=== PATIENT | male | born 1995 | race Caucasian/White ===

== ENCOUNTER 2017-05-11 12:26 | Inpatient (IN) | payer SELFPAY ==
[~2017-05-11] VITALS: Ht 167.6 cm; Wt 66.6 kg
[2017-05-11] MEDS ORDERED: KETOROLAC 30 MG INJ IV STA (14:05)
[2017-05-11] MEDS ORDERED: DEXAMETHASONE 10 MG/ML 1 ML INJ IV ONE (14:30)
[2017-05-11] MEDS ORDERED: SOD CHLORIDE 0.9% 100 ML ONE (14:33)
[2017-05-11] MEDS ORDERED: IOHEXOL 300MG/ML 150 ML BTL ONE (14:33)
[2017-05-11 14:42] LABS: ADD SCAN DIFF NO
[2017-05-11 14:45] LABS: ABNORMAL IP MESSAGE 1; HEMATOCRIT 43.9 % (42.0-52.0); HEMOGLOBIN 15.4 g/dl (14.0-18.0); MEAN CORPUSCULAR HEMOGLOBIN 28.9 pg (29.0-33.0); MEAN CORPUSCULAR HGB CONC 35.1 g/dl (32.0-37.0); MEAN CORPUSCULAR VOLUME 82.5 fl (72.0-104.0); PLATELET COUNT 244 10^3/UL (140-415); RED BLOOD COUNT 5.32 10^6/ul (4.70-6.10); RED CELL DISTRIBUTION WIDTH 12.5 % (11.5-14.5); WHITE BLOOD COUNT 29.2 10^3/ul (4.8-10.8)
[2017-05-11] MEDS ORDERED: morphine 4 MG/ML VIAL IV STA (15:04)
[2017-05-11] MEDS ORDERED: ONDANSETRON 4 MG INJ IV STA (15:04)
[2017-05-11 15:06] LABS: ALBUMIN 5.3 g/dl (3.3-4.9); ALBUMIN/GLOBULIN RATIO 1.76; BILIRUBIN,INDIRECT 0.8 mg/dl (0-1.1); BILIRUBIN,TOTAL 0.8 mg/dl (0.2-1.3); CALCIUM 9.9 mg/dl (8.4-10.2); CREATININE 1.02 mg/dl (0.61-1.24); POTASSIUM 4.3 mmol/L (3.5-5.1); TOTAL PROTEIN 8.3 g/dl (6.1-8.1)
--- NOTE | 2017-05-11 15:09 | RADRPT ---
PROCEDURE: CT Neck with contrast CLINICAL INDICATION: Peritonsillar abscess. TECHNIQUE: CT of the neck was performed following the intravenous administration of 80 cc of Omnip aque-300 IV Contrast. Axial images were obtained through the neck with multiplanar reformatted image s generated from the axial acquired data. The administered radiation dose was CTDI vol = 8.82 mGy, DLP = 259.13 mGy-cm. One or more of the following dose reduction techniques were used: Automated exp osure control, Adjustment of the mA and/or kV according to patient size, or Use of iterative reconst ruction technique. COMPARISON: There are no similar studies submitted for comparison. FINDINGS: SKULL: The visualized portions of the brain are grossly unremarkable.The visualized orbits are unrem arkable.The visualized paranasal sinuses are well aerated.The bilateral mastoid air cells are within normal limits. PAROTID GLANDS: Unremarkable. SUBMANDIBULAR GLANDS: Unremarkable. THYROID GLAND: Unremarkable. VASCULATURE: The bilateral vascular structures are patent. LYMPH NODES: There are mildly large hyperenhancing bilateral level II a lymph nodes greater on the r ight with the right measuring 2.1 x 1.4 cm (image 36 series 3). These are likely reactive. Otherw ise there are no bilateral enlarged lymph nodes. No necrotic lymph nodes are identified. AERODIGESTIVE TRACT: There is streak artifact from dental hardware limiting evaluation of the oral c avity.There is a 2 cm peripherally enhancing fluid attention within the right peritonsillar region m ost compatible with peritonsillar abscess. There is slight enhancement of the bilateral palatine to nsils compatible with acute tonsillitis. There is also edema of the uvula. This causes mild to mod erate nasopharyngeal airway effacement. Edema also extends inferiorly into the right posterior orop haryngeal submucosa wall. There is also mild edema extending inferiorly along the lateral aspect of the right epiglottis. Otherwise no abnormal enhancing aerodigestive tract lesion is identified. THORAX: The lung apices are unremarkable. OSSEOUS STRUCTURES: No destructive lytic or blastic osseous lesion is identified.There is reversal o f the cervical lordosis suggesting muscle spasm. IMPRESSION: 1. There is striated enhancement and enlargement of the bilateral palatine tonsils compatible with acute tonsillitis. There is a 2 cm right peritonsillar abscess. This causes mild to moderate nasoph aryngeal airway effacement. There is mild adjacent right parapharyngeal/submucosal submandibular [place] bcutaneous fluid likely reactive. There is mild fluid extending inferiorly to the lateral aspect of the right epiglottis and right posterior oropharyngeal/hypopharyngeal submucosal wall. There is asso ciated uvula edema. Direct inspection is recommended as clinically warranted. 2. Mildly enlarged right greater than left bilateral level IIA lymph nodes which are likely reactiv e. Further findings as detailed above. These findings were discussed with Dr. Izabela Shepherd at 03:06 p.m. on May 11, 2017. RPTAT: PP .Martin Siu MD, MD Date Time Electronically viewed and signed by .Martin Siu MD, on 05/11/2017 15:08 .F/
[2017-05-11] MEDS ORDERED: SOD CHLORIDE 0.9% 1,000 ML IV ONE (15:30)
[2017-05-11] MEDS ORDERED: ACETAMINOPHEN 1000MG/100ML IV 100 ML IVPB ONE (15:30)
[2017-05-11] MEDS ORDERED: PIPER-TAZO 3.375 GM IV (PMX) 100 ML IVPB ONE (15:30)
[2017-05-11] MEDS ORDERED: LIDOCAINE 1% (MDV) 20 ML INJ SC ONE (16:00)
[2017-05-11 16:39] LABS: LYMPHOCYTES # 1.2 10^3/ul (0.8-2.9); MONOCYTE # 2.6 10^3/ul (0.3-0.9); NEUTROPHIL # 24.8 10^3/ul (1.6-7.5)
--- NOTE | 2017-05-11 17:35 | ERA ---
ER Documentation Chief Complaint Date/Time DATE: 05/11/17 Chief Complaint Sore throat HPI The patient is 21-year-old male, presenting to the ER because of sore throat, unable to open his mouth wide, unable to speak well when he woke up today. He had right peritonsillar abscess incised and drained on April 26, 2017 at [facility] and was discharged with antibiotic for 5 days. He has been doing well until today. He denies fever, chills, neck pain, chest pain, dyspnea , abdominal pain, vomiting ROS All systems reviewed and are negative except as per history of present illness. Medications Home Meds No Active Prescriptions or Reported Meds Allergies Allergies: Coded Allergies: No Known Allergy (Unverified , 05/11/17) PMhx/Soc Medical and Surgical Hx: pt denies Medical Hx, pt denies Surgical Hx History of Surgery: No Anesthesia Reaction: No Hx Neurological Disorder: No Hx Respiratory Disorders: No Hx Cardiac Disorders: No Hx Psychiatric Problems: No Hx Miscellaneous Medical Probl: No Hx Alcohol Use: No Hx Substance Use: No Hx Tobacco Use: No Smoking Status: Never smoker Physical Exam Vitals Vital Signs Date Time Temp Pulse Resp B/P Pulse Ox O2 Delivery O2 Flow Rate FiO2 05/11/17 18:48 97.9 58 18 122/78 99 Room Air 05/11/17 17:23 98.2 96 20 137/80 97 Room Air 05/11/17 14:53 101.6 118 22 130/76 96 Room Air 05/11/17 12:49 100.8 99 20 136/99 99 Physical Exam Const: No acute distress. Head: Atraumatic. Eyes: Normal Conjunctiva. ENT: Normal External Ears, Nose and Mouth. Large right peritonsillar abscess Neck: Full range of motion. No meningismus. Resp: Clear to auscultation bilaterally. Cardio: Regular rate and rhythm. Abd: Soft, non distended, normal bowel sounds, non tender. Skin: No petechiae or rashes. Back: No midline or flank tenderness. Ext: No cyanosis, or edema. Neur: Awake and alert. No focal deficit Psych: Normal Mood and Affect. Result Diagram: 05/11/17 1422 05/11/17 1422 Results 24 hrs Laboratory Tests Test 05/11/17 14:22 White Blood Count 29.210^3/ul Red Blood Count 5.3210^6/ul Hemoglobin 15.4g/dl Hematocrit 43.9% Mean Corpuscular Volume 82.5fl Mean Corpuscular Hemoglobin 28.9pg Mean Corpuscular Hemoglobin Concent 35.1g/dl Red Cell Distribution Width 12.5% Platelet Count 90008^3/UL Mean Platelet Volume 11.0fl Neutrophils % 85.0% Band Neutrophils % 2.0% Lymphocytes % 4.0% Monocytes % 9.0% Neutrophils # 24.810^3/ul Lymphocytes # 1.210^3/ul Monocytes # 2.610^3/ul Differential Comment Sodium Level 137mmol/L Potassium Level 4.3mmol/L Chloride Level 97mmol/L Carbon Dioxide Level 28mmol/L Anion Gap 16 Blood Urea Nitrogen 9mg/dl Creatinine 1.02mg/dl Glucose Level 122mg/dl Calcium Level 9.9mg/dl Total Bilirubin 0.8mg/dl Direct Bilirubin 0.00mg/dl Indirect Bilirubin 0.8mg/dl Aspartate Amino Transf (AST/SGOT) 26IU/L Alanine Aminotransferase (ALT/SGPT) 38IU/L Alkaline Phosphatase 80IU/L Total Protein 8.3g/dl Albumin 5.3g/dl Globulin 3.00g/dl Albumin/Globulin Ratio 1.76 Current Medications Medications (Trade) Dose Ordered Sig/Nj Route PRN Reason Start Time Stop Time Status Last Admin Dose Admin Ketorolac Tromethamine (Toradol) 30 mg ONCE STAT IV 05/11/17 14:05 05/11/17 14:09 DC 05/11/17 14:27 Dexamethasone (Decadron) 10 mg ONCE ONCE IV 05/11/17 14:30 05/11/17 14:31 DC 05/11/17 14:27 IV Flush 10 ml 10 ml STK-MED ONCE .ROUTE 05/11/17 14:33 05/11/17 14:34 DC Sodium Chloride (NS) 100 ml @ ud STK-MED ONCE .ROUTE 05/11/17 14:33 05/11/17 14:34 DC Iohexol 150 ml 150 ml STK-MED ONCE .ROUTE 05/11/17 14:33 05/11/17 14:34 DC Sodium Chloride 1,000 ml @ 1,000 mls/hr Q1H ONCE IV 05/11/17 15:30 05/11/17 16:29 DC 05/11/17 15:09 Acetaminophen (Ofirmev 1000mg/ 100ml Iv) 100 ml @ 400 mls/hr ONCE ONCE IVPB 05/11/17 15:30 05/11/17 15:44 DC 05/11/17 15:17 Morphine Sulfate (morphine) 4 mg ONCE STAT IV 05/11/17 15:04 05/11/17 15:06 DC Ondansetron HCl 4 mg 4 mg ONCE STAT IV 05/11/17 15:04 05/11/17 15:06 DC Piperacillin Sod/ Tazobactam Sod (Zosyn 3.375gm/ 100 ml (Pmx)) 100 ml @ 200 mls/hr ONCE ONCE IVPB 05/11/17 15:30 05/11/17 15:59 DC 05/11/17 15:28 Lidocaine (Xylocaine 1% (Mdv) 20 ml) 20 ml ONCE ONCE SC 05/11/17 16:00 05/11/17 16:01 DC IV Flush (NS 3 ml) 3 ml PER PROTOCOL IV 05/11/17 18:30 Lorazepam (Ativan) 0.5 mg Q6H PRN IV ANXIETY 05/11/17 18:30 Ondansetron HCl (Zofran Inj) 4 mg Q6H PRN IV NAUSEA AND/OR VOMITING 05/11/17 18:30 05/11/17 19:49 Acetaminophen (Tylenol Supp) 650 mg Q6H PRN [place] PAIN LEVEL 1-3 OR FEVER 05/11/17 18:30 Morphine Sulfate (morphine) 4 mg Q4H PRN IV pain 05/11/17 18:30 Hydromorphone HCl (Dilaudid) 1 mg Q4H PRN IV pain 05/11/17 18:30 05/11/17 19:48 Albuterol/ Ipratropium 3 ml 3 ml Q2H RESP THERAPY PRN HHN SHORTNESS OF BREATH 05/11/17 18:30 Piperacillin Sod/ Tazobactam Sod (Zosyn 3.375gm/ 100 ml (Pmx)) 100 ml @ 200 mls/hr Q6H IVPB 05/11/17 18:30 05/11/17 18:55 DC Vancomycin HCl VANCOMYCIN PER PHARMACY PER PROTOCOL XX 05/11/17 18:30 Piperacillin Sod/ Tazobactam Sod 100 ml @ 200 mls/hr Q6 IVPB 05/11/17 20:00 Vancomycin HCl (Vancocin) 250 ml @ 125 mls/hr Q8H IVPB 05/11/17 20:00 05/11/17 19:13 Procedures/MDM [place] [id number] [place] [id number] Radiology Main Line: [phone] DIAGNOSTIC IMAGING REPORT Patient: NATI GIBSON : 1995 Age: 21 Sex: M MR #: [id number] DOS: 05/11/17 1405 Ordering MD: SANGEETA ZALDIVAR NP Location: E/R Room/Bed: PROCEDURE: CT Neck with contrast CLINICAL INDICATION: Peritonsillar abscess. TECHNIQUE: CT of the neck was performed following the intravenous administration of 80 cc of Omnipaque-300 IV Contrast. Axial images were obtained through the neck with multiplanar reformatted images generated from the axial acquired data. The administered radiation dose was CTDI vol = 8.82 mGy, DLP = 259.13 mGy-cm. One or more of the following dose reduction techniques were used: Automated exposure control, Adjustment of the mA and/or kV according to patient size, or Use of iterative reconstruction technique. COMPARISON: There are no similar studies submitted for comparison. FINDINGS: SKULL: The visualized portions of the brain are grossly unremarkable.The visualized orbits are unremarkable.The visualized paranasal sinuses are well aerated.The bilateral mastoid air cells are within normal limits. PAROTID GLANDS: Unremarkable. SUBMANDIBULAR GLANDS: Unremarkable. THYROID GLAND: Unremarkable. VASCULATURE: The bilateral vascular structures are patent. LYMPH NODES: There are mildly large hyperenhancing bilateral level II a lymph nodes greater on the right with the right measuring 2.1 x 1.4 cm (image 36 series 3). These are likely reactive. Otherwise there are no bilateral enlarged lymph nodes. No necrotic lymph nodes are identified. AERODIGESTIVE TRACT: There is streak artifact from dental hardware limiting evaluation of the oral cavity.There is a 2 cm peripherally enhancing fluid attention within the right peritonsillar region most compatible with peritonsillar abscess. There is slight enhancement of the bilateral palatine tonsils compatible with acute tonsillitis. There is also edema of the uvula. This causes mild to moderate nasopharyngeal airway effacement. Edema also extends inferiorly into the right posterior oropharyngeal submucosa wall. There is also mild edema extending inferiorly along the lateral aspect of the right epiglottis. Otherwise no abnormal enhancing aerodigestive tract lesion is identified. THORAX: The lung apices are unremarkable. OSSEOUS STRUCTURES: No destructive lytic or blastic osseous lesion is identified.There is reversal of the cervical lordosis suggesting muscle spasm. IMPRESSION: 1. There is striated enhancement and enlargement of the bilateral palatine tonsils compatible with acute tonsillitis. There is a 2 cm right peritonsillar abscess. This causes mild to moderate nasopharyngeal airway effacement. There is mild adjacent right parapharyngeal/submucosal submandibular subcutaneous fluid likely reactive. There is mild fluid extending inferiorly to the lateral aspect of the right epiglottis and right posterior oropharyngeal/hypopharyngeal submucosal wall. There is associated uvula edema. Direct inspection is recommended as clinically warranted. 2. Mildly enlarged right greater than left bilateral level IIA lymph nodes which are likely reactive. Further findings as detailed above. These findings were discussed with Dr. Sangeeta Zaldivar at 03:06 p.m. on May 11, 2017. RPTAT: PP .Martin Siu MD, MD Date Time Electronically viewed and signed by .Martin Siu MD, on 05/11/2017 15:08 .F/ CC: SANGEETA ZALDIVAR [employer]OOK [employer]ENT Consultation: I discussed the patient with the ENT Dr. Gardiner, who came to the ER and attempted to I&D the tonsillar abscess without success. He recommended admitting the patient MEDICAL MAKING DECISION: The patient is a 21-year-old male, presenting with acute right peritonsillar abscess. He was treated with Zosyn IV, pain medication and IV fluid The differential diagnoses considered include but are not limited to peritonsillar abscess, cellulitis, pharyngitis, pharyngeal cellulitis Departure Diagnosis: Primary Impression: Peritonsillar abscess Condition: Stable Comments I discussed the findings with the patient. I discussed the patient with the on- call hospitalist Dr. Camacho who was made aware of the lab, the treatment, the patient condition and my discussion with the ENT specialist. The patient is admitted to [facility] due to possibility of airway compromise The patient's blood pressure was elevated (>120/80) but appears stable without evidence of hypertension emergency or urgency. The patient was counseled about the risks of hypertension and urged to pursue outpatient monitoring and therapy within a week with their primary care physician. PAMELA OLSEN MD May 11, 2017 17:35
[2017-05-11] MEDS ORDERED: ACETAMINOPHEN 650 MG SUPP PR PRN (18:30)
[2017-05-11] MEDS ORDERED: morphine 4 MG/ML VIAL IV PRN (18:30)
[2017-05-11] MEDS ORDERED: ALBUTEROL/IPRATROPIUM (NEB) 3 ML AMP HHN PRN (18:30)
[2017-05-11] MEDS ORDERED: ONDANSETRON 4 MG INJ IV PRN (18:30)
[2017-05-11] MEDS ORDERED: LORAZEPAM 2 MG INJ IV PRN (18:30)
[2017-05-11] MEDS ORDERED: PIPER-TAZO 3.375 GM IV (PMX) 100 ML IVPB SCH ×2 (18:30→20:00)
[2017-05-11] MEDS ORDERED: VANCOMYCIN IV PER PHARMACY XX SCH (18:30)
[2017-05-11] MEDS ORDERED: NACL 0.9% 3 ML SYG IV SCH (18:30)
[2017-05-11 18:48] VITALS: TEMP 97.9
[2017-05-11] MEDS: VANCOMYCIN 1 GM in NS 250 ML IVPB SCH (19:13)
[2017-05-11] MEDS: HYDROmorphONE 1 MG/ML SYG IV PRN (19:48)
--- NOTE | 2017-05-11 23:57 | HP ---
Date/Time of Note Date/Time of Note DATE: 05/11/17 TIME: 23:57 Assessment/Plan VTE Prophylaxis VTE Prophylaxis Intervention: SCD's Assessment/Plan Assessment/Plan IMPRESSION 1. right peritonsillar abscess 2. Sepsis 2/2 above PLAN Abx Pain mgmt ID consult f/u ENT recommendation HPI/ROS Admit Date/Time Admit Date/Time Hx of Present Illness This is a 21 yo male with recent hx of peritonsillar abscess s/p I&D 04/26/17 at [facility] presented to ER c/o difficulty opening mouth, pain, sore throat and pain with swallowing. Attempt I&D by ENT here in our ER by Dr. Gardiner was unsuccessful. CT neck showed the following There is striated enhancement and enlargement of the bilateral palatine tonsils compatible with acute tonsillitis. There is a 2 cm right peritonsillar abscess. This causes mild to moderate nasopharyngeal airway effacement. There is mild adjacent right parapharyngeal/submucosal submandibular subcutaneous fluid likely reactive. There is mild fluid extending inferiorly to the lateral aspect of the right epiglottis and right posterior oropharyngeal/hypopharyngeal submucosal wall. There is associated uvula edema. Direct inspection is recommended as clinically warranted. Mildly enlarged right greater than left bilateral level IIA lymph nodes which are likely reactive. PMH/Family/Social Social History Smoking Status: Never smoker Exam/Review of Systems Vital Signs Vitals Vital Signs Date Time Temp Pulse Resp B/P Pulse Ox O2 Delivery O2 Flow Rate FiO2 05/11/17 18:48 97.9 58 18 122/78 99 Room Air Exam Constitutional: alert, distress, oriented Head: atraumatic, normocephalic ENMT: other (pharyngeal and uvular swelling. neck tender) Respiratory: clear to auscultation, normal air movement Cardiovascular: nl pulses, regular rate and rhythm Gastrointestinal: non-tender, soft Extremities: normal pulses Labs Result Diagram: 05/11/17 1422 05/11/17 1422 Medications Medications Current Medications Lorazepam (Ativan) 0.5 mg Q6H PRN IV ANXIETY; Start 05/11/17 at 18:30 Ondansetron HCl (Zofran Inj) 4 mg Q6H PRN IV NAUSEA AND/OR VOMITING Last administered on 05/11/17t 19:49; Admin Dose 4 MG; Start 05/11/17 at 18:30 Acetaminophen (Tylenol Supp) 650 mg Q6H PRN [place] PAIN LEVEL 1-3 OR FEVER; Start 05/11/17 at 18:30 Morphine Sulfate (morphine) 4 mg Q4H PRN IV pain; Start 05/11/17 at 18:30 Hydromorphone HCl 1 mg 1 mg Q4H PRN IV pain Last administered on 05/11/17 19: 48; Admin Dose 1 MG; Start 05/11/17 at 18:30 Vancomycin HCl 250 ml @ 125 mls/hr Q8H IVPB Last administered on 05/11/17 19: 13; Admin Dose 125 MLS/HR; Start 05/11/17 at 20:00 Piperacillin Sod/ Tazobactam Sod (Zosyn 3.375gm/ 100 ml (Pmx)) 100 ml @ 200 mls /hr Q6 IVPB ; Start 05/12/17 at 02:00 DOLORES SCOTT MD May 11, 2017 23:57
[2017-05-12] VITALS (12 sets, daily range): BP systolic 120–133; BP diastolic 61–82; PULSE 88–117; RESP 17–21; Ht 167.6 cm; Wt 66.6 kg
[2017-05-12] MEDS: PIPER-TAZO 3.375 GM IV (PMX) 100 ML IVPB SCH ×5 (02:22→23:56)
[2017-05-12] MEDS: VANCOMYCIN 1 GM in NS 250 ML IVPB SCH ×3 (03:30→21:23)
[2017-05-12 06:20] LABS: ADD SCAN DIFF NO
[2017-05-12 06:25] LABS: ABNORMAL IP MESSAGE 1; HEMOGLOBIN 14.1 g/dl (14.0-18.0); MEAN CORPUSCULAR HEMOGLOBIN 28.8 pg (29.0-33.0); MEAN CORPUSCULAR HGB CONC 34.4 g/dl (32.0-37.0); MEAN CORPUSCULAR VOLUME 83.7 fl (72.0-104.0); MEAN PLATELET VOLUME 12.2 fl (7.4-10.4); PLATELET COUNT 222 10^3/UL (140-415); RED CELL DISTRIBUTION WIDTH 13.1 % (11.5-14.5); WHITE BLOOD COUNT 27.2 10^3/ul (4.8-10.8)
[2017-05-12 07:02] LABS: ALBUMIN 4.5 g/dl (3.3-4.9); ALBUMIN/GLOBULIN RATIO 1.95; BILIRUBIN,INDIRECT 0.7 mg/dl (0-1.1); BILIRUBIN,TOTAL 0.7 mg/dl (0.2-1.3); CALCIUM 9.1 mg/dl (8.4-10.2); CREATININE 0.93 mg/dl (0.61-1.24); MAGNESIUM 1.7 mg/dl (1.7-2.5); POTASSIUM 3.9 mmol/L (3.5-5.1); TOTAL PROTEIN 6.8 g/dl (6.1-8.1)
[2017-05-12] MEDS ORDERED: MAGNESIUM SULFATE 2 GM/50 ML 50 ML IVPB ONE (08:00)
[2017-05-12 09:53] LABS: LYMPHOCYTES # 0.8 10^3/ul (0.8-2.9); MONOCYTE # 1.4 10^3/ul (0.3-0.9); NEUTROPHIL # 22.8 10^3/ul (1.6-7.5)
[2017-05-12] MEDS: HYDROmorphONE 1 MG/ML SYG IV PRN (21:27)
[2017-05-13] VITALS (13 sets, daily range): BP systolic 100–124; BP diastolic 59–76; PULSE 50–86; RESP 20–21
[2017-05-13] MEDS: VANCOMYCIN 1.25 GM in SOD CHLORIDE 0.9% 250 ML IVPB SCH ×3 (02:05→17:48)
[2017-05-13] MEDS: PIPER-TAZO 3.375 GM IV (PMX) 100 ML IVPB SCH ×4 (06:21→23:24)
--- NOTE | 2017-05-13 16:35 | PN ---
Date/Time of Note Date/Time of Note DATE: 05/12/17 TIME: 16:34 Assessment/Plan VTE Prophylaxis VTE Prophylaxis Intervention: SCD's Lines/Catheters IV Catheter Type (from Nrsg): Saline Lock Assessment/Plan Assessment/Plan IMPRESSION 1. right peritonsillar abscess 2. Sepsis 2/2 above PLAN Abx Pain mgmt ID consult f/u ENT recommendation Subjective 24 Hr Interval Summary Free Text/Dictation c/o feeling hungry. stated feeling better Exam/Review of Systems Vital Signs Vitals Vital Signs Date Time Temp Pulse Resp B/P Pulse Ox O2 Delivery O2 Flow Rate FiO2 05/13/17 15:11 97.9 75 20 124/76 98 05/12/17 05:54 Room Air Intake and Output 05/12/17 05/12/17 05/13/17 15:00 23:00 07:00 Intake Total 350 ml 680 ml 700 ml Balance 350 ml 680 ml 700 ml Exam Constitutional: alert, distress, oriented Head: atraumatic, normocephalic ENMT: other (pharyngeal and uvular swelling. neck tender) Respiratory: clear to auscultation, normal air movement Cardiovascular: nl pulses, regular rate and rhythm Gastrointestinal: non-tender, soft Extremities: normal pulses Results Result Diagram: 05/12/17 0455 05/12/17 0455 Results 24 hrs Laboratory Tests Test 05/12/17 18:52 Vancomycin Level Trough 10.0 Medications Medications Current Medications Lorazepam (Ativan) 0.5 mg Q6H PRN IV ANXIETY; Start 05/11/17 at 18:30 Ondansetron HCl (Zofran Inj) 4 mg Q6H PRN IV NAUSEA AND/OR VOMITING Last administered on 05/11/17 19:49; Admin Dose 4 MG; Start 05/11/17 at 18:30 Acetaminophen (Tylenol Supp) 650 mg Q6H PRN [place] PAIN LEVEL 1-3 OR FEVER; Start 05/11/17 at 18:30 Morphine Sulfate (morphine) 4 mg Q4H PRN IV pain; Start 05/11/17 at 18:30 Hydromorphone HCl 1 mg 1 mg Q4H PRN IV pain Last administered on 05/12/17 21: 27; Admin Dose 1 MG; Start 05/11/17 at 18:30 Piperacillin Sod/ Tazobactam Sod 100 ml @ 200 mls/hr Q6 IVPB Last administered on 05/13/17 12:09; Admin Dose 200 MLS/HR; Start 05/12/17 at 02:00 Vancomycin HCl/ Sodium Chloride (Vancocin/NS) 250 ml @ 83.333 mls/ hr Q8H IVPB Last administered on 05/13/17 10:20; Admin Dose 83.333 MLS/HR; Start at 02:00 Miscellaneous Information (*Rx Drug Level Order Reminder*) 1 ONCE ONCE XX ; Start 05/14/17 at 01:00; Stop 05/14/17 at 01:01 DOLORES SCOTT MD May 13, 2017 16:35
--- NOTE | 2017-05-13 16:37 | PN ---
Date/Time of Note Date/Time of Note DATE: 05/13/17 TIME: 16:35 Assessment/Plan VTE Prophylaxis VTE Prophylaxis Intervention: SCD's Lines/Catheters IV Catheter Type (from Nrsg): Saline Lock Assessment/Plan Assessment/Plan IMPRESSION 1. right peritonsillar abscess 2. Sepsis 2/2 above PLAN Abx Pain mgmt ID consult f/u ENT recommendation Subjective 24 Hr Interval Summary Free Text/Dictation pt currently tolerating mechanical soft diet Exam/Review of Systems Vital Signs Vitals Vital Signs Date Time Temp Pulse Resp B/P Pulse Ox O2 Delivery O2 Flow Rate FiO2 05/13/17 15:11 97.9 75 20 124/76 98 05/12/17 05:54 Room Air Intake and Output 05/12/17 05/12/17 05/13/17 15:00 23:00 07:00 Intake Total 350 ml 680 ml 700 ml Balance 350 ml 680 ml 700 ml Exam Constitutional: alert, distress, oriented Head: atraumatic, normocephalic ENMT: other (pharyngeal and uvular swelling. neck tender) Respiratory: clear to auscultation, normal air movement Cardiovascular: nl pulses, regular rate and rhythm Gastrointestinal: non-tender, soft Extremities: normal pulses Results Result Diagram: 05/12/17 0455 05/12/17 0455 Results 24 hrs Laboratory Tests Test 05/12/17 18:52 Vancomycin Level Trough 10.0 Medications Medications Current Medications Lorazepam (Ativan) 0.5 mg Q6H PRN IV ANXIETY; Start 05/11/17 at 18:30 Ondansetron HCl (Zofran Inj) 4 mg Q6H PRN IV NAUSEA AND/OR VOMITING Last administered on 05/11/17 19:49; Admin Dose 4 MG; Start 05/11/17 at 18:30 Acetaminophen (Tylenol Supp) 650 mg Q6H PRN [place] PAIN LEVEL 1-3 OR FEVER; Start 05/11/17 at 18:30 Morphine Sulfate (morphine) 4 mg Q4H PRN IV pain; Start 05/11/17 at 18:30 Hydromorphone HCl 1 mg 1 mg Q4H PRN IV pain Last administered on 05/12/17 21: 27; Admin Dose 1 MG; Start 05/11/17 at 18:30 Piperacillin Sod/ Tazobactam Sod 100 ml @ 200 mls/hr Q6 IVPB Last administered on 05/13/17 12:09; Admin Dose 200 MLS/HR; Start 05/12/17 at 02:00 Vancomycin HCl/ Sodium Chloride (Vancocin/NS) 250 ml @ 83.333 mls/ hr Q8H IVPB Last administered on 05/13/17 10:20; Admin Dose 83.333 MLS/HR; Start at 02:00 Miscellaneous Information (*Rx Drug Level Order Reminder*) 1 ONCE ONCE XX ; Start 05/14/17 at 01:00; Stop 05/14/17 at 01:01 DOLORES SCOTT MD May 13, 2017 16:36
[2017-05-14] VITALS (10 sets, daily range): BP systolic 113–122; BP diastolic 76–82; PULSE 50–81; RESP 17–18
[2017-05-14] MEDS: PIPER-TAZO 3.375 GM IV (PMX) 100 ML IVPB SCH ×2 (05:44→12:55)
[2017-05-14] MEDS ORDERED: VANCOMYCIN 1.25 GM in SOD CHLORIDE 0.9% 250 ML IVPB SCH (06:00)
[2017-05-14 07:11] LABS: ADD SCAN DIFF NO
[2017-05-14 07:16] LABS: HEMATOCRIT 41.6 % (42.0-52.0); HEMOGLOBIN 13.9 g/dl (14.0-18.0); MEAN CORPUSCULAR HEMOGLOBIN 28.4 pg (29.0-33.0); MEAN CORPUSCULAR HGB CONC 33.4 g/dl (32.0-37.0); MEAN CORPUSCULAR VOLUME 85.1 fl (72.0-104.0); MEAN PLATELET VOLUME 11.5 fl (7.4-10.4); PLATELET COUNT 226 10^3/UL (140-415); RED BLOOD COUNT 4.89 10^6/ul (4.70-6.10); RED CELL DISTRIBUTION WIDTH 13.2 % (11.5-14.5); WHITE BLOOD COUNT 5.5 10^3/ul (4.8-10.8)
[2017-05-14 07:57] LABS: ALBUMIN 4.4 g/dl (3.3-4.9); ALBUMIN/GLOBULIN RATIO 1.51; BILIRUBIN,INDIRECT 0.3 mg/dl (0-1.1); BILIRUBIN,TOTAL 0.3 mg/dl (0.2-1.3); CALCIUM 9.3 mg/dl (8.4-10.2); CREATININE 0.97 mg/dl (0.61-1.24); POTASSIUM 3.8 mmol/L (3.5-5.1); TOTAL PROTEIN 7.3 g/dl (6.1-8.1)
[2017-05-14 10:26] LABS: BASOPHIL # 0.1 10^3/ul (0.0-0.1); EOSINOPHILS # 0.1 10^3/ul (0.0-0.5); LYMPHOCYTES # 1.6 10^3/ul (0.8-2.9); MONOCYTE # 0.3 10^3/ul (0.3-0.9); NEUTROPHIL # 2.8 10^3/ul (1.6-7.5)
[2017-05-14] MEDS ORDERED: HYDR-906 PO (14:08)
[2017-05-14] MEDS ORDERED: CLIN-73 PO (14:08)
[2017-05-14] MEDS ORDERED: TYL500 PO (14:08)
--- NOTE | 2017-05-14 14:13 | PDOCDIS ---
Discharge Instructions CONDITION Patient Condition: Stable HOME CARE INSTRUCTIONS: Special Diet: soft advance as tolerated ACTIVITY: Activity Restrictions: No Restrictions FOLLOW UP/APPOINTMENTS Follow-up Plan follow-up with primary care doctor OTHER ORDERS: Other Orders: call 911 and go to the nearest ER if you have difficulty breathing, swallowing, fever/chills, severe pain or bleeding DOLORES SCOTT MD May 14, 2017 14:13
== END 2017-05-14 17:36 | disposition home or self-care (01) | DRG 871 ==
LOC: E/R 12:26 → TEL 17:32
PROVIDERS: ADMIT Internal Medicine; ATTEND Internal Medicine
DX: A41.9 Sepsis, unspecified organism (principal); K65.1 Peritoneal abscess; J02.9 Acute pharyngitis, unspecified
CPT/HCPCS: 70491; 80053; 80202; 83735; 85025; 92610; 96365; 96366; 96367; 96375; 96376; J0131; J1100; J1170; J1885; J2270; J2405; J2543; J3370; J3475; J7030; J7050; Q9967